=== PATIENT | male | born 1965 | race Caucasian/White ===

== ENCOUNTER 2020-06-24 06:37 | Outpatient (CLI) | payer OTHER, SELFPAY ==
[2020-06-24 07:33] LABS: Basophils Absolute Auto 0.1 K/mm3 (0.0-0.1); Basophils Percent Auto 0.7 % (0.2-1.2); Eosinophils Absolute Auto 0.3 K/mm3 (0-0.3); Eosinophils Percent Auto 4.7 % (0-4.4); Hematocrit 49.6 % (42.0-52.0); Hemoglobin 16.8 g/dL (14.0-18.0); Immature Granulocyte Absolute 0.02 K/mm3 (0.00-0.031); Immature Granulocyte Percent A 0.3 % (0-0.5); Lymphocytes Absolute Auto 2.57 K/mm3 (0.9-3.2); Lymphocytes Percent Auto 36.3 % (18.3-44.2); Mean Corpuscular HGB Conc 33.9 g/dl (32-36); Mean Corpuscular Hemoglobin 30.9 pg (26-34); Mean Corpuscular Volume 91.3 fl (80-100); Mean Platelet Volume 9.4 fl (7.4-10.4); Monocytes Absolute Auto 0.7 K/mm3 (0.1-0.6); Monocytes Percent Auto 9.5 % (2.6-8.5); Neutrophils Absolute Auto 3.4 K/mm3 (1.3-6.7); Neutrophils Percent Auto 48.5 % (45.5-73.1); Platelet Count Result 281 k/mm3 (150-375); Red Blood Count 5.43 M/mm3 (4.6-6.20); Red Cell Distribution Width 12.8 % (11.5-14.5); White Blood Count 7.1 K/mm3 (4.5-10.0)
[2020-06-24 07:44] LABS: Alanine Aminotransferase 32 U/L (4-50); Albumin Level 4.4 g/dL (3.5-5.1); Alkaline Phosphatase 43 U/L (38-126); Anion Gap 6 mmol/L (8-16); Aspartate Amino Transferase 35 U/L (17-59); Bilirubin,Total 0.6 mg/dL (0.2-1.3); Blood Urea Nitrogen 16 mg/dL (9-20); Calcium 9.1 mg/dL (8.4-10.2); Carbon Dioxide 30 mmol/L (22-30); Chloride 103 mmol/L (98-107); Cholesterol 198 mg/dL (0-200); Estimated Glomerular Filt Rate 58; Glucose 99 mg/dL (75-110); HDL Direct 37 mg/dL; Potassium 4.7 mmol/L (3.4-5.0); Sodium 139 mmol/L (137-145); Triglycerides 162 mg/dL (<150)
[2020-06-24 07:54] LABS: LDL Cholesterol Direct 123 mg/dL
[2020-06-28 13:40] LABS: Testosterone Total 619 ng/dL (250-1100)
== END 2020-06-24 06:38 | disposition home or self-care (01) ==
DX: E29.1 Testicular hypofunction (principal)
CPT/HCPCS: 36415; 80053; 80061; 84403; 85025

== ENCOUNTER 2021-01-24 06:34 | Outpatient (CLI) | payer OTHER, SELFPAY ==
[2021-01-24 08:23] LABS: Prostate Specific Antigen 1.3 ng/mL (< OR = 4.0)
[2021-01-29 01:34] LABS: Testosterone Total 530 ng/dL (250-1100)
== END 2021-01-24 06:35 | disposition home or self-care (01) ==
PROVIDERS: Visit Provider Hospitalist
DX: E29.1 Testicular hypofunction (principal)
CPT/HCPCS: 36415; 84153; 84403

== ENCOUNTER 2021-08-13 06:40 | Outpatient (CLI) | payer OTHER, SELFPAY ==
[2021-08-13 07:37] LABS: Basophils Absolute Auto 0.1 K/mm3 (0.0-0.1); Basophils Percent Auto 0.7 % (0.2-1.2); Eosinophils Absolute Auto 0.4 K/mm3 (0-0.3); Eosinophils Percent Auto 5.3 % (0-4.4); Hematocrit 49.1 % (42.0-52.0); Hemoglobin 17.2 g/dL (14.0-18.0); Immature Granulocyte Absolute 0.02 K/mm3 (0.00-0.031); Immature Granulocyte Percent A 0.3 % (0-0.5); Lymphocytes Absolute Auto 2.39 K/mm3 (0.9-3.2); Lymphocytes Percent Auto 35.1 % (18.3-44.2); Mean Corpuscular Hemoglobin 31.6 pg (26-34); Mean Corpuscular Volume 90.3 fl (80-100); Mean Platelet Volume 9.6 fl (7.4-10.4); Monocytes Absolute Auto 0.7 K/mm3 (0.1-0.6); Monocytes Percent Auto 9.7 % (2.6-8.5); Neutrophils Absolute Auto 3.3 K/mm3 (1.3-6.7); Neutrophils Percent Auto 48.9 % (45.5-73.1); Platelet Count Result 305 k/mm3 (150-375); Red Blood Count 5.44 M/mm3 (4.6-6.20); White Blood Count 6.8 K/mm3 (4.5-10.0)
[2021-08-13 07:48] LABS: Alanine Aminotransferase 56 U/L (4-50); Albumin Level 4.3 g/dL (3.5-5.1); Alkaline Phosphatase 52 U/L (38-126); Anion Gap 5 mmol/L (8-16); Aspartate Amino Transferase 56 U/L (17-59); Bilirubin,Total 0.6 mg/dL (0.2-1.3); Blood Urea Nitrogen 17 mg/dL (9-20); Calcium 8.9 mg/dL (8.4-10.2); Carbon Dioxide 30 mmol/L (22-30); Chloride 102 mmol/L (98-107); Cholesterol 244 mg/dL (0-200); Estimated Glomerular Filt Rate 53; Glucose 91 mg/dL (65-110); HDL Direct 34 mg/dL; Potassium 4.2 mmol/L (3.4-5.0); Sodium 137 mmol/L (137-145); Triglycerides 248 mg/dL (<150)
[2021-08-13 07:59] LABS: LDL Cholesterol Direct 138 mg/dL
[2021-08-17 09:07] LABS: Testosterone Total 518 ng/dL (250-1100)
== END 2021-08-13 06:41 | disposition home or self-care (01) ==
LOC: ANHLAB 06:42
PROVIDERS: PCP Hospitalist; Visit Provider Hospitalist
DX: E78.5 Hyperlipidemia, unspecified (principal)
CPT/HCPCS: 36415; 80053; 80061; 84402; 84403; 85025

== ENCOUNTER 2022-06-29 06:36 | Outpatient (CLI) | payer OTHER, SELFPAY ==
[2022-06-29 07:03] LABS: Basophils Percent Auto 0.5 % (0.2-1.2); Eosinophils Absolute Auto 0.2 K/mm3 (0-0.3); Eosinophils Percent Auto 3.7 % (0-4.4); Hematocrit 47.6 % (42.0-52.0); Hemoglobin 15.9 g/dL (14.0-18.0); Immature Granulocyte Absolute 0.01 K/mm3 (0.00-0.031); Immature Granulocyte Percent A 0.2 % (0-0.5); Lymphocytes Percent Auto 39.8 % (18.3-44.2); Mean Corpuscular HGB Conc 33.4 g/dl (32-36); Mean Corpuscular Hemoglobin 31.2 pg (26-34); Mean Corpuscular Volume 93.3 fl (80-100); Mean Platelet Volume 9.5 fl (7.4-10.4); Monocytes Absolute Auto 0.5 K/mm3 (0.1-0.6); Monocytes Percent Auto 8.3 % (2.6-8.5); Neutrophils Absolute Auto 3.1 K/mm3 (1.3-6.7); Neutrophils Percent Auto 47.5 % (45.5-73.1); Platelet Count Result 256 k/mm3 (150-375); Red Cell Distribution Width 13.2 % (11.5-14.5); White Blood Count 6.5 K/mm3 (4.5-10.0)
[2022-06-29 08:17] LABS: Alanine Aminotransferase 42 U/L (6-50); Albumin Level 4.2 g/dL (3.5-5.1); Alkaline Phosphatase 57 U/L (38-126); Anion Gap 5 mmol/L (8-16); Aspartate Amino Transferase 36 U/L (17-59); Bilirubin,Total 0.7 mg/dL (0.2-1.3); Blood Urea Nitrogen 15 mg/dL (9-20); Calcium 8.9 mg/dL (8.4-10.2); Carbon Dioxide 30 mmol/L (22-30); Chloride 103 mmol/L (98-107); Cholesterol 208 mg/dL (0-200); Estimated Glomerular Filt Rate > 60; Glucose 90 mg/dL (65-110); HDL Direct 30 mg/dL; Potassium 4.1 mmol/L (3.4-5.0); Sodium 138 mmol/L (137-145); Triglycerides 266 mg/dL (<150)
[2022-06-29 08:41] LABS: LDL Cholesterol Direct 116 mg/dL
[2022-06-29 08:58] LABS: Prostate Specific Antigen 0.9 ng/mL (< OR = 4.0)
[2022-07-03 12:03] LABS: Testosterone Total 1344 ng/dL (250-1100)
== END 2022-06-29 06:37 | disposition home or self-care (01) ==
LOC: ANHLAB 06:40
PROVIDERS: PCP Hospitalist; Visit Provider Hospitalist
DX: E78.5 Hyperlipidemia, unspecified (principal)
CPT/HCPCS: 36415; 80053; 80061; 84153; 84403; 85025; G0103

== ENCOUNTER 2023-03-17 10:03 | Outpatient (CLI) | payer OTHER, SELFPAY ==
[2023-03-17 10:50] LABS: Basophils Absolute Auto 0.1 K/mm3 (0.0-0.1); Basophils Percent Auto 0.9 % (0.2-1.2); Eosinophils Absolute Auto 0.2 K/mm3 (0-0.3); Eosinophils Percent Auto 3.5 % (0-4.4); Hematocrit 53.3 % (42.0-52.0); Hemoglobin 17.5 g/dL (14.0-18.0); Immature Granulocyte Absolute 0.02 K/mm3 (0.00-0.031); Immature Granulocyte Percent A 0.3 % (0-0.5); Lymphocytes Absolute Auto 2.28 K/mm3 (0.9-3.2); Lymphocytes Percent Auto 35.1 % (18.3-44.2); Mean Corpuscular HGB Conc 32.8 g/dl (32-36); Mean Corpuscular Hemoglobin 30.3 pg (26-34); Mean Corpuscular Volume 92.4 fl (80-100); Mean Platelet Volume 9.4 fl (7.4-10.4); Monocytes Absolute Auto 0.5 K/mm3 (0.1-0.6); Monocytes Percent Auto 8.3 % (2.6-8.5); Neutrophils Absolute Auto 3.4 K/mm3 (1.3-6.7); Neutrophils Percent Auto 51.9 % (45.5-73.1); Platelet Count Result 286 k/mm3 (150-375); Red Blood Count 5.77 M/mm3 (4.6-6.20); Red Cell Distribution Width 13.1 % (11.5-14.5); White Blood Count 6.5 K/mm3 (4.5-10.0)
[2023-03-17 11:04] LABS: Alanine Aminotransferase 43 U/L (6-50); Albumin Level 4.5 g/dL (3.5-5.1); Alkaline Phosphatase 53 U/L (38-126); Anion Gap 10 mmol/L (8-16); Aspartate Amino Transferase 34 U/L (17-59); Bilirubin,Total 0.8 mg/dL (0.2-1.3); Blood Urea Nitrogen 14 mg/dL (9-20); Calcium 9.5 mg/dL (8.4-10.2); Carbon Dioxide 29 mmol/L (22-30); Chloride 99 mmol/L (98-107); Cholesterol 322 mg/dL (0-200); Estimated Glomerular Filt Rate > 60; Glucose 98 mg/dL (65-110); HDL Direct 41 mg/dL; Potassium 4.3 mmol/L (3.4-5.0); Sodium 138 mmol/L (137-145); Triglycerides 262 mg/dL (<150)
[2023-03-17 11:15] LABS: LDL Cholesterol Direct 193 mg/dL
[2023-03-17 11:31] LABS: Prostate Specific Antigen 1.3 ng/mL (< OR = 4.0)
[2023-03-21 11:53] LABS: Testosterone Total 709 ng/dL (250-1100)
== END 2023-03-17 10:04 | disposition home or self-care (01) ==
LOC: ANHLAB 10:05
PROVIDERS: PCP Hospitalist; Visit Provider Hospitalist
DX: E29.1 Testicular hypofunction (principal)
CPT/HCPCS: 36415; 80053; 80061; 84153; 84403; 85025; G0103

== ENCOUNTER 2023-11-12 06:49 | Outpatient (CLI) | payer OTHER, SELFPAY ==
[2023-11-12 10:08] LABS: Hepatitis B Surface Antigen Negative (Negative)
[2023-11-12 10:26] LABS: Hepatitis B Surface Anti Res Negative; Hepatitis C Virus Antibody Negative (Negative)
[2023-11-13 10:53] LABS: Hepatitis B Core Ab Total NON-REACTIVE (NON-REACTIVE)
== END 2023-11-12 06:50 | disposition home or self-care (01) ==
PROVIDERS: PCP Hospitalist; Visit Provider Hospitalist
DX: Z11.59 Encounter for screening for other viral diseases (principal)
CPT/HCPCS: 36415; 86704; 86706; 86803; 87340

== ENCOUNTER 2023-11-26 15:58 | Outpatient (CLI) | payer OTHER, SELFPAY ==
--- NOTE | ~2023-11-26 | XR_ITS ---
EXAMINATION: XR knee LT min 4V DATE: 11/26/2023 16:23 INDICATION: Left knee injury with medial knee pain and abrasions TECHNIQUE: Anteroposterior, 2 oblique and crosstable lateral views of the left knee were obtained COMPARISON: None. FINDINGS: Alignment is normal. No fracture. Joint spaces appear normal on nonweightbearing imaging with tiny m arginal ossified small 3 compartments consistent with at least minimal osteoarthritis. No joint effus ion/layering lipohemarthrosis. Soft tissues are unremarkable. IMPRESSION: 1. Minimal osteoarthritis at the left knee with no joint effusion or acute osseous abnormality. Reviewed, dictated and finalized at location A. IMPRESSION: 1. Minimal osteoarthritis at the left knee with no joint effusion or acute osse ous abnormality.
--- NOTE | ~2023-11-26 | XR_ITS ---
EXAMINATION: XR ankle LT min 3V DATE: 11/26/2023 16:22 INDICATION: Left ankle injury TECHNIQUE: Anteroposterior, oblique and lateral views of the left ankle were obtained. COMPARISON: None. FINDINGS: Alignment is normal. No fracture. Joint spaces are well maintained. Tiny plantar calcaneal spur. No ankle joint effusion. The soft tissues are unremarkable. IMPRESSION: 1. No acute osseous abnormality. Reviewed, dictated and finalized at location A.
== END 2023-11-26 15:59 | disposition home or self-care (01) ==
PROVIDERS: PCP Hospitalist; Visit Provider Hospitalist
DX: M17.12 Unilateral primary osteoarthritis, left knee (principal); S99.912D Unspecified injury of left ankle, subsequent encounter; S89.92XD Unspecified injury of left lower leg, subsequent encounter; X58.XXXD Exposure to other specified factors, subsequent encounter
CPT/HCPCS: 73564; 73610

== ENCOUNTER 2024-03-01 06:50 | Outpatient (CLI) | payer OTHER, SELFPAY ==
[2024-03-01 07:21] LABS: Basophils Percent Auto 0.6 % (0.2-1.2); Eosinophils Absolute Auto 0.3 K/mm3 (0-0.3); Eosinophils Percent Auto 4.2 % (0-4.4); Hematocrit 45.5 % (42.0-52.0); Hemoglobin 15.2 g/dL (14.0-18.0); Immature Granulocyte Absolute 0.01 K/mm3 (0.00-0.031); Immature Granulocyte Percent A 0.2 % (0-0.5); Lymphocytes Absolute Auto 2.22 K/mm3 (0.9-3.2); Lymphocytes Percent Auto 34.6 % (18.3-44.2); Mean Corpuscular HGB Conc 33.4 g/dl (32-36); Mean Corpuscular Hemoglobin 31.3 pg (26-34); Mean Corpuscular Volume 93.8 fl (80-100); Mean Platelet Volume 9.7 fl (7.4-10.4); Monocytes Absolute Auto 0.6 K/mm3 (0.1-0.6); Monocytes Percent Auto 9.5 % (2.6-8.5); Neutrophils Absolute Auto 3.3 K/mm3 (1.3-6.7); Neutrophils Percent Auto 50.9 % (45.5-73.1); Platelet Count Result 284 k/mm3 (150-375); Red Blood Count 4.85 M/mm3 (4.6-6.20); Red Cell Distribution Width 13.2 % (11.5-14.5); White Blood Count 6.4 K/mm3 (4.5-10.0)
[2024-03-01 07:31] LABS: Cholesterol 156 mg/dL (0-200); HDL Direct 41 mg/dL; Triglycerides 110 mg/dL (<150)
[2024-03-01 08:04] LABS: Prostate Specific Antigen 1.6 ng/mL (< OR = 4.0)
[2024-03-01 08:38] LABS: LDL Cholesterol Direct 81 mg/dL
== END 2024-03-01 06:51 | disposition home or self-care (01) ==
PROVIDERS: PCP Hospitalist; Visit Provider Hospitalist
DX: E29.1 Testicular hypofunction (principal); Z12.5 Encounter for screening for malignant neoplasm of prostate
CPT/HCPCS: 36415; 80061; 84153; 84402; 84403; 85025; G0103

== ENCOUNTER 2024-06-06 09:39 | Outpatient (CLI) | payer OTHER, SELFPAY ==
--- NOTE | ~2024-06-06 | XR_ITS ---
EXAMINATION: XR hand RT min 3V DATE: 06/06/2024 10:07 INDICATION: Right hand pain. TECHNIQUE: 3 views of right hand were obtained. COMPARISON: None. FINDINGS: Alignment is normal. No fracture. There is mild osteoarthritis of first carpometacarpal jose nt and first interphalangeal joint. IMPRESSION: 1. Mild polyarticular osteoarthritis. Reviewed, dictated and finalized at location A. E PRACTITIONER HOSPITALIST
--- OUTSIDE RECORDS SUMMARY | 2024-06-06 10:32 | XMS_ITS | Clinical Summary ---
Author Organization [facility] [place] [address] [facility] Address [address] [place] [address] Care Team Providers Care Supervisor Gluing Name Role Phone Himanshu Solorzano MD Primary Care Provider [phone] Allergies No known active allergies Medications syringe with needle 1 mL 22 gauge x 1 1/2 syringe 1 each every 14 (fourteen) days 9 each 02/06/20 21 Active simvastatin (ZOCOR) 40 mg tablet Take 1 tablet (40 mg total) by mouth nightly 90 tablet 3 03/22/20 23 Active testosterone cypionate (DEPO-TESTOTER ONE) 200 mg/mL injection INJECT 200 MG INTRAMUSCULARLY EVERY 10 DAYS (ON THE , , AND 30 EACH MONTH) 9 mL 1 03/06/20 24 Active triamcinolone (KENALOG) 0.1 % ointment Apply topically 2 (two) times a day as needed for irritation or rash 15 g 08/26/19 22 025 Discontin ued(Patie nt Reported) Active Problems Problem Noted Date Diagnosed Date Erectile dysfunction due to arterial insufficien cy 07/06/2022 Assessment & Plan (05/11/2023 12:24 PM WOUND NURSE): Stable, not well controlled Will give trial of sildenafil 50 mg p.r.n. Assessment & Plan (07/06/2022 1:13 PM CDT): Not well controlled; notes decreased strength of erections Will start Viagra 50 mg prn for erection Hypogonadism in male 02/08/2020 Overview (02/08/2020): On testosterone since 2009 Titrated to once every 10-days. Assessment & Plan (11/18/2023 4:04 PM CDT): Stable, tolerating medication well; continues on regular schedule Will need to recheck testosterone levels, as well as lipid and PSA Continue testosterone 200 mg every 10 days Assessment & Plan (05/11/2023 12:23 PM WOUND NURSE): Stable, no major changes; tolerating injections well Continue 200 mg every 10 days Continue to monitor testosterone levels, hemoglobin hematocrit and lipid panels Assessment & Plan (07/06/2022 1:11 PM CDT): Stable, well controlled; Continue 200 mg every 10 days Assessment & Plan (08/25/2021 3:40 PM CDT): Stable, well controlled; most recent testosterone cervical sore at target Continue 200 mg every 10 days Assessment & Plan (02/03/2021 11:07 AM CDT): Stable, well controlled clinical testosterone 200 mg Q 10 days Last testosterone levels were within target range Testosterone redrawn this month, however results not loaded in the system at this time Will review results to ensure appropriate dose of testosterone Continue testosterone 200 mg Q 10 days Assessment & Plan (07/18/2020 11:36 AM CDT): Stable, Testosterone in physiologic range; will continue current dose of 200 mg every 10 days -lipid panel is generally in normal range -blood pressure is normal -will check PSA on next blood check -routine lab work in 6 months Assessment & Plan (02/08/2020 9:17 AM CDT): Reviewed patient labs from previous physician group Testosterone was in mid normal range as appropriate for testosterone replacement therapy Continue therapy and recheck testosterone levels in 3 months Discussed with patient risk and benefits of testosterone therapy 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 Unclear indication, but last prescription was only for single 1 mL vial for 1 dose. Given evidence of treatment for at least the past year, will avoid rapid discontinue to prevent iatrogenic hypogonadism Dyslipidemia (high LDL; low HDL) 02/08/2020 Assessment & Plan (11/18/2023 4:04 PM CDT): Stable, well controlled, last lipid panel within normal limits; will get routine lipid panel Assessment & Plan (05/11/2023 12:23 PM WOUND NURSE): Not well controlled; elevated direct LDL and total cholesterol; patient reports since measurements was restarted simvastatin; trying to make dietary changes including increasing aerobic activity, eating more lean meats and decreasing fast food Continue simvastatin 40 mg, recheck lipid panel at follow-up appointment Assessment & Plan (07/06/2022 1:11 PM CDT): Stable, well controlled; LDL at target, elevated trigylcerides Continue Simvastatin 40 mg nightly Low-fat; high-fiber diet Assessment & Plan (08/25/2021 3:40 PM CDT): Stable, well controlled; continue simvastatin 40 mg nightly Assessment & Plan (02/03/2021 11:08 AM CDT): Stable, well controlled; continue simvastatin 40 mg nightly Encourage low-fat diet, aerobic exercise; 30 minutes moderate intensity 5 days per week Assessment & Plan (07/18/2020 11:37 AM CDT): Reviewed blood work, LDL and total cholesterol at high end of normal -HDL low, Triglycerides elevated -continue Simvastatin -patient given education for dietary and activity changes Assessment & Plan (02/08/2020 9:02 AM CDT): Stable, well controlled Patient had labs from September 2019 was reviewed which demonstrated normal cholesterol, HDL, and LDL Resolved Problems Problem Noted Date Diagnosed Date Resolved Date Annual physical exam 02/08/2020 020 Encounters Date Type Department Care Team Description 06/06/2024 8:30 AM WOUND NURSE Office Visit [facility] [address] [place] [address] Himanshu Solorzano MD Pain in finger of right hand (Primary Dx) from Last 3 Months Immunizations Name Administration Dates Next Due COVID-19 mRNA (PFIZER) 0.3 m L (30 mcg) vaccine (12 years and up) 02/12/2024 Influenza, Quadrivalent, Spl it, Preservative Free, Intramuscular 05/11/2023,02/11/2022,02/03/2021 Influenza, Trivalent, Preser vative Free, Intramuscular 02/12/2024 Influenza, Unspecified 03/22/2023(Deferr ed: Patient Refused),04/26/2020(Deferred: Patient Refused),02/08/2020(Deferred: Patient Refused),04/26/2019(Deferred: Patient Refused) Tdap 11/18/2023 ZOSTER Recombinant 02/12/2024 Surgical History Surgery Date Site/Laterality Comments TONSILLECTOMY Family History Medical History Relation Name Comments Heart disease Father Hypertension Mother Relation Name Status Comments Father Mother Alive Social History Tobacco Use Types Packs/Day Years Used Date Smoking Tobacco: Never Smokeless Tobacco: Never Tobacco Cessation:Counseling Given: Not Answered Alcohol Use Standard Drinks/Week Comments Yes 2 (1 standard drink = 0.6 oz pur e alcohol) 2 week socially [employer] Answer Date Recorded In the past 12 months has e [employer], gas, oil, or water [employer] threatened to shut off services in your home? No 05/11/2023 Humiliation, Afraid, Rape, and Kick questionnair e Answer Date Recorded Within the last year, have y ou been afraid of your partner or ex-partner? No 05/11/2023 Within the last year, have y ou been humiliated or emotionally abused in other ways by your partner or ex-partner? No Within the last year, have y ou been kicked, hit, slapped, or otherwise physically hurt by your partner or ex-partner? No 05/11/2023 Within the last year, have y ou been raped or forced to have any kind of sexual activity by your partner or ex-partner? No 05/11/2023 Social Connection and Isolat ion Panel [NHANES] Answer Date Recorded In a typical week, how many times do you talk on the phone with family, friends, or neighbors? More than three times a week 05/11/2023 How often do you get togethe r with friends or relatives? More than three times a week 05/11/2023 How often do you attend chur ch or yazdanism services? Never 05/11/2023 Do you belong to any clubs o r organizations such as yarsanism groups, unions, fraternal or athletic groups, or school groups? No 05/11/2023 How often do you attend meet ings of the clubs or organizations you belong to? Never 05/11/2023 Are you , , di vorced, , never , or living with a partner? 05/11/2023 AUDIT-C Answer Date Recorded Q1: How often do you have a drink containing alc ohol? 2-3 times a week 05/11/2023 Q2: How many drinks containi ng alcohol do you have on a typical day when you are drinking? 3 or 4 05/11/2023 Q3: How often do you have si x or more drinks on one occasion? Less than monthly 05/11/2023 Overall Financial Resource Strain (CARDIA) Answe r Date Recorded How hard is it for you to pa y for the very basics like food, housing, medical care, and heating? Not hard at all 05/11/2023 PHQ-2 Answer Date Recorded PHQ-2 Total Score (If total score is 3 or more points, staff should administer the PHQ-9) 2 06/06/2024 [facility] - Occupational Stress Questionnaire Answer Date Recorded Do you feel stress - tense, restless, nervous, or anxious, or unable to sleep at night because your mind is troubled all the time - these days? Only a little 05/11/2023 Exercise Vital Sign Answer Date Recorde d On average, how many days pe r week do you engage in moderate to strenuous exercise (like a brisk walk)? 7 days 05/11/2023 On average, how many minutes do you engage in exercise at this level? 90 min 05/11/2023 Hunger Vital Sign Answer Date Recorded Within the past 12 months, y ou worried that your food would run out before you got the money to buy more. Never true 05/11/19 24 Within the past 12 months, t he food you bought just didn't last and you didn't have money to get more. Never true 05/11/2023 PRAPARE - Transportation Answer Date Re corded In the past 12 months, has l ack of transportation kept you from medical appointments or from getting medications? No 04/26 In the past 12 months, has l ack of transportation kept you from meetings, work, or from getting things needed for daily living? No 05/11/2023 Housing Stability Vital Sign Answer Joo e Recorded In the last 12 months, was t here a time when you were not able to pay the mortgage or rent on time? No 05/11/2023 In the last 12 months, how many places have you lived? 1 05/11/2023 In the last 12 months, was t here a time when you did not have a steady place to sleep or slept in a correction (including now)? No 05/11/2023 Sex and Gender Information Value Date Recorded Sex Assigned at Not on file Legal Sex Male 6:07 PM WOUND NURSE Gender Identity Not on file Sexual Orientation Not on file Obstetrics History Last Filed Vital Signs Vital Sign Reading Time Taken Comments Blood Pressure 130/80 06/06/2024 8:25 AM WOUND NURSE Pulse 64 06/06/2024 8:25 AM WOUND NURSE Temperature 36.4 C (97.6 F) 06/06/2024 8:25 AM WOUND NURSE Respiratory Rate 16 06/06/2024 8:25 AM WOUND NURSE Oxygen Saturation 98% 06/06/2024 8:25 AM WOUND NURSE Inhaled Oxygen Concentration - - Weight 81.6 kg (180 lb) 06/06/2024 8:25 AM WOUND NURSE Height 175.3 cm (5' 9 ) 06/06/2024 8:25 AM WOUND NURSE Body Mass Index 26.58 06/06/2024 8:25 AM WOUND NURSE Plan of Treatment Health Maintenance Due Date Last Done Comments Hepatitis C Screening 1965 Hepatitis B Screening 12/17/1985 Regular Well Visit/Exam 18-64 12/17/1985 Prostate Cancer Screening-PSA 01/24/2023 01/24/2021 Colon Cancer Screening-DNA Stool 05/28/2023 05/28/2020 Zoster Vaccine (2 of 2) 04/08/2024 02/12/2024 Depression Screening 06/06/2025 06/06/2024, 05/11/2023, 05/11/2023, Additional history exists DTaP/Tdap/Td Vaccine Discontinued 11/18/2023 Covid-19 Vaccine Completed 02/12/2024, , 08/12/2020, Additional history exists Influenza Vaccine Completed 02/12/2024, , 02/11/2022, Additional history exists Pneumococcal vaccine <65 Aged Out No longer eligible based on patient's age to complete this topic Procedures Procedure Name Priority Date/Time Associated Diagnosis Comments PSA SCREEN Routine 01/24/2021 Hypogonadism in male STOOL DNA COLOGUARD Routine 05/28/2020 11:00 AM WOUND NURSE Annual physical exam from Last 3 Months or Most Recently Relevant to Health Maintenance Results * PSA screen (01/24/2021) SCRIBED PSA, Serum 1.3 <OR=4.0 ng/mL EXTERNAL LAB Blood specimen (specimen) 01/24/2021 us Himanshu Solorzano MD LAB BLOOD ORDERABLES Mag[facility] chase Result EXTERNAL LAB * Stool DNA - Cologuard (05/28/2020 11:00 AM WOUND NURSE) Stool DNA - Cologuard Negative Not Applicable [facility] (CLIA #:[id number]) Comment: A negative result indicates a low likelihood that a colorectal cancer (CRC) or an advanced adenoma (adenomatous polyps with more advanced pre-malignant features) is present. The chance that a person with a negative Cologuard test has a colorectal cancer is less than 1 in 1500 (negative predictive value >99.9%) or has an advanced adenoma is less than 5.3% (negative predictive value 94.7%). These data are based on a prospective cross-sectional screening study of 10,000 individuals at average risk for colorectal cancer who were screened with both Cologuard and colonoscopy. (Giovanny Rogel al, N Engl J Med 2014;370(14):2603-4151) The normal value (reference range) for this assay is negative. COLOGUARD RE-SCREENING RECOMMENDATION: Periodic routine colorectal cancer screening is an important part of preventive healthcare for asymptomatic persons at average risk for colorectal cancer. Following a negative Cologuard result, the [place] Cancer Society and U.S. Multi-Society Task Force screening guidelines recommend a Cologuard re-screening interval of 3 years. References: [place] [employer] Society (ACS). Colorectal cancer prevention and early detection. [place], [place]: [place] [employer]; [updated 2015Aug 17]. https://www.cancer.org/cancer/jivdn-sofsbe-kaaxvg/ybnyzqfuj-kipdnfwtg-jacqchw/ac s-rec ommendations.html. Accessed December 24, 2017; Dominic CARROLL, Richelle REED, Sravani BabcockK, Colorectal Cancer Screening: Recommendations for Physicians and Patients from the U.S. Multi-Society Task Force on Colorectal Cancer Screening, Am J Gastroenterology 2017; 112:9019-1568. TEST TYPE: Composite algorithmic analysis of stool DNA-biomarkers with hemoglobin immunoassay. Quantitative values of individual biomarkers are not reportable and are not associated with individual biomarker result reference ranges. PRECAUTIONS AND LIMITATIONS: Cologuard is intended for colorectal cancer screening of adults of either sex, 45 years or older, who are at average-risk for colorectal cancer (CRC). Cologuard has been approved for use by the U.S. FDA. Cologuard may produce a false negative or false positive result. A negative Cologuard test result does not guarantee the absence of CRC or advanced adenoma (pre-cancer). Patients with a negative Cologuard test result should be advised to continue participating in a colorectal cancer screening program. The screening interval for Cologuard is currently recommended at an interval of every 3 years by the [place] [employer] Society and U.S. Multi-Society Task Force. A false positive result occurs when Cologuard produces a positive result, even though a colonoscopy may not find colorectal cancer or precancerous polyps. The performance of Cologuard has been established in a cross sectional study (i.e., single point in time) of average-risk adults aged 50-84. Cologuard performance in patients ages 45 to 49 years was estimated by sub-group analysis of near-age groups. Cologuard performance data in a 10,000 patient pivotal study using colonoscopy as the reference method can be accessed at the following location: www.Productiv.Skyrider/results. Additional description of the Cologuard test process, warnings and precautions can be found at www.cologuardtest.com. Rx only. Stool 05/28/2020 11:0 0 AM WOUND NURSE 05/29/2020 11:31 AM WOUND NURSE us Himanshu Solorzano MD LAB BODY FLUIDS AND STOOL S ORDERABLES Final Result [facility] (CLIA #:[id number]) [place] [address] [place] [address] from Last 3 Months or Most Recently Relevant to Health Maintenance Insurance [facility] Care Teams Supervisor Gluing Relationship Specialty Start Date End Date Himanshu Solorzano MD [address] [place] [address] PCP - General Family Medicine 02/08/20
--- OUTSIDE RECORDS SUMMARY | 2024-06-06 10:32 | XMS_ITS | Clinical Summary ---
Author Organization [facility] Address [address] [place] [address] Care Team Providers Care Sales Attendant Building Materials Name Role Phone Zeesahn De Leon MD Primary Care Provider [phone] Source Comments [facility],non-owned Affiliates and Associated Physician Practices is amultiple site organization consisting of ambulatory clinics and hospital sitesin [place], [place], [place] and [place]. This disclosure is being madepursuant to the Care Everywhere program and may not contain all information available regarding this patient. Last updated 18.[facility] Allergies No known active allergies Medications * Be aware that medications may not be up to date on this document. Alwaysverify current medications with the patient. Medication Sig Dispensed Refills Start Date End Date Status simvastatin (ZOCOR) 40 MG tablet Take 40 mg by mouth at bedtime Active Social History Tobacco Use Types Packs/Day Years Used Date Smoking Tobacco: Never Sex and Gender Information Value Date Recorded Sex Assigned at Not on file Gender Identity Not on file Sexual Orientation Not on file Last Filed Vital Signs Vital Sign Reading Time Taken Comments Blood Pressure 144/100 04/28/2016 11:13 AM FLUME TENDER Pulse 81 04/28/2016 11:13 AM FLUME TENDER Temperature 36.9 C (98.5 F) 04/28/2016 11:13 AM FLUME TENDER Respiratory Rate 16 04/28/2016 11:13 AM FLUME TENDER Oxygen Saturation 95% 04/28/2016 11:13 AM FLUME TENDER Inhaled Oxygen Concentration - - Weight 77.1 kg (170 lb) 04/28/2016 11:13 AM FLUME TENDER Height 175.3 cm (5' 9 ) 04/28/2016 11:13 AM FLUME TENDER Body Mass Index 25.1 04/28/2016 11:13 AM FLUME TENDER Plan of Treatment Health Maintenance Due Date Last Done Comments NIKOLAY (AGES 45-75) - COL ON CA SCREENING 1965 COLON MONITORING 1965 COLONOSCOPY - COLON CA SCREENING 1967 CT COLONOGRAPHY - COLON CA SCREENING 1965 Colorectal Cancer Screening 1965 FIT - COLON CA SCREENING 1965 FLEX SIG - COLON CA SCREENING 1965 HIV SCREENING 12/17/1982 HEPATITIS C SCREENING 12/13/1985 DTAP/TDAP/TD VACCINES (1 - Tdap) 12/17/1986 HEPATITIS B VACCINE (1 of 3 - 19+ 3-dose series) 12/17/1986 PNEUMOCOCCAL VACCINE 50+ (1 of 1 - PCV) 12/17/2017 ZOSTER VACCINE (1 of 2) 12/17/2017 COVID-19 VACCINE ( - 2023-2 5 season) 2023 INFLUENZA VACCINE (#1) 2023 DEPRESSION SCREENING 04/26/2024 HIB VACCINE Aged Out No longer eligi ble based on patient's age to complete this topic HPV VACCINE Aged Out No longer eligi ble based on patient's age to complete this topic MENINGOCOCCAL (Group B) VACCINE Aged Out No longer eligible based on patient's age to complete this topic MENINGOCOCCAL VACCINE Aged Out No arnulfo lacho eligible based on patient's age to complete this topic PNEUMOCOCCAL VACCINE Aged Out No long er eligible based on patient's age to complete this topic Care Teams Sales Attendant Building Materials Relationship Specialty Start Date End Date Zeeshan De Leon MD [address] [place] [id number] PCP - General Family Medicine 04/28/16
--- OUTSIDE RECORDS SUMMARY | 2024-06-06 10:32 | XMS_ITS | Encounter Summary ---
Author Organization [facility] Address [address] [place] [address] Care Team Providers Care Tool Marker Name Role Phone Himanshu Solorzano MD Primary Care Provider [phone] Reason for Referral * Diagnostic Imaging (Routine) - Pending Review Specialty Diagnoses / Procedures Referred By Contac t Referred To Contact Diagnoses Pain in finger of right hand Procedures XR Hand Right 3+ Vw XR Hand Right 3+ Vw Himanshu Solorzano MD [address] [place] [address] Phone: tel: fax: External Order Referral ID Status Reason Start Date Expiration Date V isits Requested Visits Authorized [id number] Pending Review 06/06/2024 07/06/2025 1 1 R WORKER [employer]SF[employer] Reason for Visit * Reason Comments Preventative Care Annual visit Encounter Details Date Type Department Care Team (Late st Contact Info) Description 06/06/2024 8:30 AM FLOOR WORKER [employer] Office Visit [facility] [address] [place] [employer] [id number] Himanshu Solorzano MD [address] [place] [address] Pain in finger of right hand (Primary Dx) Social History Tobacco Use Types Packs/Day Years Used Date Smoking Tobacco: Never Smokeless Tobacco: Never Alcohol Use Standard Drinks/Week Comments Yes 2 (1 standard drink = 0.6 oz pur e alcohol) 2 week socially [facility] Utilities Answer Date Recorded In the past 12 months has e [employer], gas, oil, or water company threatened to shut off services in your [...] week 05/11/2023 How often do you attend the medical center ch or catholic services? Never 05/11/2023 Do you belong to any clubs o r organizations such as islam groups, unions, fraternal or athletic groups, or [...] staff should administer the PHQ-9) 2 06/06/2024 [facility] - Occupational Stress Questionnaire Answer Date Recorded [...] on file Legal Sex Male 6:07 PM FLOOR WORKER [employer] Gender Identity Not on file Sexual Orientation Not on file documented as of this encounter Last Filed Vital Signs Vital Sign Reading Time Taken Comments Blood Pressure 130/80 06/06/2024 8:25 AM FLOOR WORKER [employer] Pulse 64 06/06/2024 8:25 AM FLOOR WORKER [employer] Temperature 36.4 C (97.6 F) 06/06/2024 8:25 AM FLOOR WORKER [employer] Respiratory Rate 16 06/06/2024 8:25 AM FLOOR WORKER [employer] Oxygen Saturation 98% 06/06/2024 8:25 AM FLOOR WORKER [employer] Inhaled Oxygen Concentration - - Weight 81.6 kg (180 lb) 06/06/2024 8:25 AM FLOOR WORKER [employer] Height 175.3 cm (5' 9 ) 06/06/2024 8:25 AM FLOOR WORKER [employer] Body Mass Index 26.58 06/06/2024 8:25 AM FLOOR WORKER [employer] documented in this encounter Patient Instructions * Patient Instructions* Himanshu Solorzano MD - 06/06/2024 8:30 AM FLOOR WORKER [employer] Magnesium supplements, 400 mg daily Weir Wort R 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 [employer] documented in this encounter Plan of Treatment Scheduled Orders Name Type Priority Associated Diagnoses Orde r Schedule XR Hand Right 3+ Vw Imaging Schedule Routine, Read Routine (OP Routine) Pain in finger of right hand Expected: 06/06/2024, Expires: 06/06/2025 documented as of this encounter Visit Diagnoses Diagnosis Pain in finger of right hand- Primary Pain in soft tissues of limb documented in this encounter Discontinued Medications Medication Sig Discontinue Reason Start Date End Da te triamcinolone (KENALOG) 0.1 % ointment Apply topically 2 (two) times a day as needed for irritation or rash Patient Reported 08/25/2021 06/06/2024 documented as of this encounter Care Teams Tool Marker Relationship Specialty Start Date End Date Himanshu Solorzano [place] [address] PCP - General Family Medicine 02/08/20 documented as of this encounter
--- OUTSIDE RECORDS SUMMARY | 2024-06-06 10:32 | XMS_ITS | Continuity of Care Document ---
Author Organization [facility] Address [id number] [place] [address] [address] [place] [address] Phone Care Team Providers Care Program Advisor Name Role Phone Frye OD, Primo Unavailable Unavailable Advance Directives Directive Yes / No Effective Date File Name No Information Encounters Encounter Description Practice Location Reason(s) For Visit Diagnoses Date Provider Providers Copied on Encounter [facility], [address], [place], [place], [id number], [place] tel:[phone] [facility] No Information Oct- 4-200 3 Frye OD Priom. [address] , [address], [place], [address], [place]. tel:[phone] Family History Family Member Type Diagnosis Age At Onset No Information Payers Payer name Insurance type Covered green party ID Authoriza tion(s) [employer] SOI CI [id number] Social History Type Description Quantity Date Captured Comments Sex Male Smoking Status No Information Chief Complaint And Reason For Visit No Information Reason For Referral Reason For Referral No Information History Of Present Illness Encounter Date Complaint History Of Prese nt Illness No Information Functional Status Date Functional Assessmen t No Information Instructions Date Instruction Additional Infor mation No Information Assessments Type Assessment Date No Information Patient Care Teams Name Effective Dates (start - stop) Status Members No Information
--- OUTSIDE RECORDS SUMMARY | 2024-06-06 10:32 | XMS_ITS | Patient Health Summary ---
Author Organization [facility] Address [address] [place] [address] Care Team Providers Care Senior It Business Analyst Name Role Phone Zeeshan De Leon MD Primary Care Provider [phone] Note from [facility],non-owned Affiliates and Associated Physician Practices is amultiple site organization consisting of ambulatory clinics and hospital sitesin [place], [place], [place] and [place]. This disclosure is being madepursuant to the Care Everywhere program and may not contain all information available regarding this patient. Last updated 18.[facility] Allergies No known active allergies Medications * Be aware that medications may not be up to date on this document. Alwaysverify current medications with the patient. * simvastatin (ZOCOR) 40 MG tablet Take 40 mg by mouth at bedtime Social History Tobacco Use Types Packs/Day Years Used Date Smoking Tobacco: Never Sex and Gender Information Value Date Recorded Sex Assigned at Not on file Gender Identity Not on file Sexual Orientation Not on file Last Filed Vital Signs Vital Sign Reading Time Taken Comments Blood Pressure 144/100 04/28/2016 11:13 AM CODING SPEC Pulse 81 04/28/2016 11:13 AM CODING SPEC Temperature 36.9 C (98.5 F) 04/28/2016 11:13 AM CODING SPEC Respiratory Rate 16 04/28/2016 11:13 AM CODING SPEC Oxygen Saturation 95% 04/28/2016 11:13 AM CODING SPEC Inhaled Oxygen Concentration - - Weight 77.1 kg (170 lb) 04/28/2016 11:13 AM CODING SPEC Height 175.3 cm (5' 9 ) 04/28/2016 11:13 AM CODING SPEC Body Mass Index 25.1 04/28/2016 11:13 AM CODING SPEC Care Teams Senior It Business Analyst Relationship Specialty Start Date End Date Zeeshan De Leon MD [address] [place] [phone] PCP - General Family Medicine 04/28/16
--- OUTSIDE RECORDS SUMMARY | 2024-06-06 10:32 | XMS_ITS | Referral Summary ---
Author Organization [facility] Address [address] [place] [address] Care Team Providers Care Tanker Serviceman Name Role Phone Zeeshan De Leon MD Primary Care Provider [phone] Source Comments [facility],non-owned Affiliates and Associated Physician Practices is amultiple site organization consisting of ambulatory clinics and hospital sitesin [place], [place], [place] and [place]. This disclosure is being madepursuant to the Care Everywhere program and may not contain all information available regarding this patient. Last updated 18.[facility] Allergies No known active allergies Medications * [...] Comments Blood Pressure 144/100 04/28/2016 11:13 AM HARDWARE INSTALLER Pulse 81 04/28/2016 11:13 AM HARDWARE INSTALLER Temperature 36.9 C (98.5 F) 04/28/2016 11:13 AM HARDWARE INSTALLER Respiratory Rate 16 04/28/2016 11:13 AM HARDWARE INSTALLER Oxygen Saturation 95% 04/28/2016 11:13 AM HARDWARE INSTALLER Inhaled Oxygen Concentration - - Weight 77.1 kg (170 lb) 04/28/2016 11:13 AM HARDWARE INSTALLER Height 175.3 cm (5' 9 ) 04/28/2016 11:13 AM HARDWARE INSTALLER Body Mass Index 25.1 04/28/2016 11:13 AM HARDWARE INSTALLER Plan of Treatment Not on file Care Teams Tanker Serviceman Relationship Specialty Start Date End Date Zeeshan De Leon MD [address] [place] [id number] PCP - General Family Medicine 04/28/16
--- OUTSIDE RECORDS SUMMARY | 2024-06-06 10:32 | XMS_ITS | Referral Summary ---
Author Organization [facility] [place] [address] [facility] Address [address] [place] [address] Care Team Providers Care Information Services Consultant Name Role Phone Himanshu Solorzano MD Primary Care Provider [phone] Encounters Date Type Department Care Team Description 06/06/2024 8:30 AM CAFE OPERATOR Office Visit Family Physicians [facility] [address] [place] [address] Himanshu Solorzano MD Pain in finger of right hand (Primary Dx) from Last 3 Months Allergies No known active allergies Medications syringe [...] MG INTRAMUSCULARLY EVERY 10 DAYS (ON THE 10TH, , AND 30 EACH MONTH) 9 mL 1 03/06/20 24 Active triamcinolone (KENALOG) 0.1 % ointment Apply topically 2 (two) times a day as needed for irritation or rash 15 g 08/26/19 22 025 Discontin ued(Patie nt Reported) Active Problems Problem Noted Date Diagnosed Date Erectile dysfunction due to arterial insufficien cy 07/06/2022 Assessment & Plan (05/11/2023 12:24 PM CAFE OPERATOR): Stable, not well controlled Will give trial [...] days Assessment & Plan (05/11/2023 12:23 PM CAFE OPERATOR): Stable, no major changes; tolerating injections well [...] risk and benefits of testosterone therapy Reviewed HEALTH EDUCATOR, patient consistently getting medication approximately every 2 [...] panel Assessment & Plan (05/11/2023 12:23 PM CAFE OPERATOR): Not well controlled; elevated direct LDL and [...] Resolved Date Annual physical exam 02/08/2020 020 Immunizations Name Administration Dates Next Due COVID-19 mRNA (PFIZER) 0.3 m L (30 mcg) vaccine (12 years and up) 02/12/2024 Influenza, Quadrivalent, Spl it, Preservative Free, Intramuscular 05/11/2023,02/11/2022,02/03/2021 Influenza, Trivalent, Preser vative Free, Intramuscular 02/12/2024 Influenza, Unspecified 03/22/2023(Deferr ed: Patient Refused),04/26/2020(Deferred: Patient Refused),02/08/2020(Deferred: Patient Refused),04/26/2019(Deferred: Patient Refused) Tdap 11/18/2023 ZOSTER Recombinant 02/12/2024 Social History Tobacco Use Types Packs/Day Years Used Date Smoking Tobacco: Never Smokeless Tobacco: Never Tobacco Cessation:Counseling Given: Not Answered Alcohol Use Standard Drinks/Week Comments Yes 2 (1 standard drink = 0.6 oz pur e alcohol) 2 week socially [employer] Answer Date Recorded In the past 12 months has [employer], gas, oil, or water [employer] threatened to shut off services in your [...] often do you attend chur ch or scientologist services? Never 05/11/2023 Do you belong to any clubs o r organizations such as bahai groups, unions, fraternal or athletic groups, or [...] staff should administer the PHQ-9) 2 06/06/2024 [facility] - Occupational Stress Questionnaire Answer Date Recorded [...] place to sleep or slept in a usp (including now)? No 05/11/2023 Sex and Gender Information Value Date Recorded Sex Assigned at Not on file Legal Sex Male 6:07 PM CAFE OPERATOR Gender Identity Not on file Sexual Orientation Not on file Last Filed Vital Signs Vital Sign Reading Time Taken Comments Blood Pressure 130/80 06/06/2024 8:25 AM CAFE OPERATOR Pulse 64 06/06/2024 8:25 AM CAFE OPERATOR Temperature 36.4 C (97.6 F) 06/06/2024 8:25 AM CAFE OPERATOR Respiratory Rate 16 06/06/2024 8:25 AM CAFE OPERATOR Oxygen Saturation 98% 06/06/2024 8:25 AM CAFE OPERATOR Inhaled Oxygen Concentration - - Weight 81.6 kg (180 lb) 06/06/2024 8:25 AM CAFE OPERATOR Height 175.3 cm (5' 9 ) 06/06/2024 8:25 AM CAFE OPERATOR Body Mass Index 26.58 06/06/2024 8:25 AM CAFE OPERATOR Plan of Treatment Not on file Procedures Procedure Name Priority Date/Time Associated Diagnosis Comments PSA SCREEN Routine 01/24/2021 Hypogonadism in male STOOL DNA COLOGUARD Routine 05/28/2020 11:00 AM CAFE OPERATOR Annual physical exam from Last 3 Months or Most Recently Relevant to Health Maintenance Results * PSA screen (01/24/2021) SCRIBED PSA, Serum 1.3 <OR=4.0 ng/mL EXTERNAL LAB Blood specimen (specimen) 01/24/2021 us Himanshu Solorzano MD LAB BLOOD ORDERABLES [facility] chase Result EXTERNAL LAB * Stool DNA - Cologuard (05/28/2020 11:00 AM CAFE OPERATOR) Stool DNA - Cologuard Negative Not Applicable [employer] (CLIA #:[id number]) Comment: A negative result indicates a low [...] screened with both Cologuard and colonoscopy. (Giovanny Gould et al, N Engl J Med 2014;370(14):7122-8265) The normal value (reference range) for this assay is negative. COLOGUARD RE-SCREENING RECOMMENDATION: Periodic routine colorectal cancer screening is an important part of preventive healthcare for asymptomatic persons at average risk for colorectal cancer. Following a negative Cologuard result, the [employer] and U.S. Multi-Society Task Force screening guidelines recommend a Cologuard re-screening interval of 3 years. References: [employer] (ACS). Colorectal cancer prevention and early detection. [place], [place]: [employer]; [updated 2015Aug 17]. https://www.cancer.org/cancer/hjigu-gxgisp-oocibo/yqhoaypwv-akgcodjkd-tamhjhm/ac s-rec ommendations.html. Accessed December 24, 2017; Dominic CARROLL, Richelle REED, Sravani BabcockK, Colorectal Cancer Screening: Recommendations for Physicians and Patients from the U.S. Multi-Society Task Force on Colorectal Cancer Screening, Am J Gastroenterology 2017; 112:0966-8101. TEST TYPE: Composite algorithmic analysis of stool [...] interval of every 3 years by the [employer] and U.S. Multi-Society Task Force. [...] can be accessed at the following location: www.[employer]/results. Additional description of the Cologuard test process, warnings and precautions can be found at www.cologuardtest.com. Rx only. Stool 05/28/2020 11:0 0 AM CAFE OPERATOR 05/29/2020 11:31 AM CAFE OPERATOR us Himanshu Solorzano MD LAB BODY FLUIDS AND STOOL S ORDERABLES Final Result [employer] (CLIA #:[id number]) [place] [address] from Last 3 Months or Most Recently Relevant to Health Maintenance Insurance [facility] [place] [address] [facility] Care Teams Information Services Consultant Relationship Specialty Start Date End Date [place]ans[place] [address] PCP - General Family Medicine 02/08/20
== END 2024-06-06 09:40 | disposition home or self-care (01) ==
PROVIDERS: PCP Hospitalist; Visit Provider Hospitalist
DX: M18.11 Unilateral primary osteoarthritis of first carpometacarpal joint, right hand (principal)
CPT/HCPCS: 73130

== ENCOUNTER 2025-02-15 06:38 | Outpatient (CLI) | payer OTHER, SELFPAY ==
--- NOTE | ~2025-02-15 | XR_ITS ---
XR shoulder RT min 2V 02/15/2025 06:55 Indication: Right shoulder pain Procedure: 4 views right shoulder Comparison: No prior studies for comparison. Findings: No fracture, subluxation or dislocation. No soft tissue abnormality. No foreign bodies. Impression: 1: No acute bone or joint abnormality. Reviewed, dictated and finalized at location O. Impression: 1: No acute bone or joint abnormality.
== END 2025-02-15 06:39 | disposition home or self-care (01) ==
LOC: ANHIMG 06:42
PROVIDERS: PCP Hospitalist; Visit Provider Hospitalist
DX: M25.511 Pain in right shoulder (principal)
CPT/HCPCS: 73030